=== PATIENT | female | born 1955 | race Hispanic/Latino ===

== ENCOUNTER 2017-04-11 09:23 | Day surgery (SDC) | payer OTHER ==
[2017-04-11 09:57] VITALS: BMI 24.7
[2017-04-11] MEDS ORDERED: Propofol 10 mg/ml Inj (20 ML) ONE ×2 (11:57→12:07)
[2017-04-11] MEDS: Lactated Ringer's 500 ML IV ONE ×2 (12:00→12:14)
[2017-04-11] MEDS ORDERED: Lactated Ringer's 500 ML IV ONE (12:00)
[2017-04-11 12:33] VITALS: TEMP 98.5
[2017-04-11 13:10] VITALS: BP 125/64; PULSE 58; RESP 14; O2SAT 99
== END 2017-04-11 13:09 | disposition home or self-care (01) ==
LOC: C.ENDO 09:23
PROVIDERS: ATTEND Internal Medicine Gastroenterology
DX: Z12.11 Encounter for screening for malignant neoplasm of colon (principal); K64.8 Other hemorrhoids
CPT/HCPCS: 45378; J2704; J3010